=== PATIENT | male | born 2000 | race Caucasian/White ===

== ENCOUNTER 2022-01-04 16:24 | Emergency (ER) | payer OTHER ==
[~2022-01-04] VITALS: Ht 177.8 cm; Wt 74.8 kg
[2022-01-04] MEDS ORDERED: CIPRO500 MG PO (18:45)
== END 2022-01-04 19:33 | disposition home or self-care (01) ==
LOC: ED 16:24
DX: S91.331A Puncture wound without foreign body, right foot, initial encounter (principal); W22.8XXA Striking against or struck by other objects, initial encounter; Z23 Encounter for immunization
CPT/HCPCS: 73630; 90471; 90715; 99283-25

== ENCOUNTER 2022-07-30 18:34 | Emergency (ER) | payer OTHER ==
[~2022-07-30] VITALS: Ht 177.8 cm; Wt 74.8 kg
[~2022-07-30 18:34] MED LIST: CIPRO500 MG PO
== END 2022-07-30 20:59 | disposition other institution, planned readmission (95) ==
LOC: ED 18:34
DX: S00.83XA Contusion of other part of head, initial encounter (principal); Y09 Assault by unspecified means
CPT/HCPCS: 70450; 70486; 96372; 99285-25; J1885